=== PATIENT | female | born 1995 | race Caucasian/White ===

== ENCOUNTER 2017-05-11 15:53 | Inpatient (IN) | payer OTHER ==
[~2017-05-11] VITALS: Ht 162.6 cm; Wt 73.9 kg
[2017-05-12] MEDS ORDERED: PREN1TAB80 PO (00:43)
[2017-05-12] MEDS ORDERED: RINGERS SOLUTION,LACTATED 1,000 ML IV PRN (01:22)
[2017-05-12] MEDS ORDERED: OXYTOCIN 30 UNITS/LACT RINGERS 500 ML IV ONE (01:27)
[2017-05-12] MEDS ORDERED: METOCLOPRAMIDE HCL 5 MG/ML 2 ML VIAL IVP PRN (01:30)
[2017-05-12] MEDS ORDERED: FentaNYL CITRATE-PF 100 MCG/2 ML VIAL IVP PRN (01:30)
[2017-05-12] MEDS ORDERED: CITRIC ACID/SODIUM CITRATE 30 ML SOLUTION UDCUP PO PRN (01:30)
[2017-05-12 01:35] VITALS: BP 119/57
[2017-05-12] MEDS ORDERED: FentaNYL/BUPIV 0.125%/NS/PF 200 ML ED ONE (02:40)
[2017-05-12] MEDS ORDERED: BUPIVACAINE HCL/PF 0.25% 30 ML VIAL ONE (02:41)
[2017-05-12] MEDS: RINGERS SOLUTION,LACTATED 1,000 ML IV SCH ×2 (03:06→06:52)
[2017-05-12] MEDS ORDERED: FentaNYL/BUPIV 0.125%/NS/PF 200 ML ED PRN (03:22)
[2017-05-12] MEDS ORDERED: ONDANSETRON HCL 4 MG/2 ML VIAL IVP PRN (03:30)
[2017-05-12] MEDS ORDERED: DiphenhydrAMINE HCL 50 MG/ML VIAL IVP PRN (03:30)
[2017-05-12] MEDS ORDERED: OXYTOCIN 20 UNITS in RINGERS SOLUTION,LACTATED 1,000 ML IV SCH (09:50)
[2017-05-12] MEDS ORDERED: MEASLES/MUMPS/RUBELLA VACCINE, LIVE 0.5 ML/VIAL SQ ONE (10:00)
[2017-05-12] MEDS ORDERED: OXYTOCIN 30 UNITS/LACT RINGERS 500 ML IV PRN (11:00)
[2017-05-12] MEDS: BENZOCAINE 20%/MENTHOL 56 GM SPRAY CANISTER TP PRN (17:13)
[2017-05-12] MEDS: GLYCERIN/WITCH HAZEL LEAF 40 PADS JAR TP PRN (17:14)
[2017-05-12] MEDS: IBUPROFEN 600 MG TABLET PO PRN (17:14)
[2017-05-12] MEDS: MAGNESIUM HYDROXIDE SUSPENSION 30 ML UDCUP PO PRN (21:13)
[2017-05-12] MEDS: SENNA/DOCUSATE SODIUM 187-50 MG TABLET PO PRN (21:13)
[2017-05-13] MEDS: IBUPROFEN 600 MG TABLET PO PRN ×3 (00:35→14:20)
[2017-05-13] MEDS: ACETAMINOPHEN/CODEINE 300-30 MG TABLET PO PRN ×2 (04:42→14:21)
[2017-05-13] MEDS: BENZOCAINE 20%/MENTHOL 56 GM SPRAY CANISTER TP PRN (07:51)
[2017-05-13] MEDS: MAGNESIUM HYDROXIDE SUSPENSION 30 ML UDCUP PO PRN (07:52)
[2017-05-13] MEDS: GLYCERIN/WITCH HAZEL LEAF 40 PADS JAR TP PRN (07:52)
[2017-05-13] MEDS: SENNA/DOCUSATE SODIUM 187-50 MG TABLET PO PRN (07:52)
[2017-05-13] MEDS ORDERED: IBUP-2070 PO (09:14)
[2017-05-13] MEDS ORDERED: FERR-89 PO (09:16)
== END 2017-05-13 15:15 | disposition home or self-care (01) | DRG 775 ==
LOC: 4S 05-12 00:42 → OBSVTOIN 05-12 00:42
PROVIDERS: ADMIT Obstetrics & Gynecology; ATTEND Obstetrics & Gynecology
PROC: 10E0XZZ Delivery of Products of Conception, External Approach (ICD-10-PCS; principal; 2017-05-12)
PROC: 0KQM0ZZ Repair Perineum Muscle, Open Approach (ICD-10-PCS; 2017-05-12)
PROC: 3E0S3CZ (ICD-10-PCS; 2017-05-12)
PROC: 00HU33Z Insertion of Infusion Device into Spinal Canal, Percutaneous Approach (ICD-10-PCS; 2017-05-12)
DX: O77.0 Labor and delivery complicated by meconium in amniotic fluid (principal); O71.4 Obstetric high vaginal laceration alone; Z3A.40 40 weeks gestation of pregnancy; Z37.0 Single live birth
CPT/HCPCS: J2590; J3490; J7120